=== PATIENT | female | born 1945 | race Native Hawaiian/Other Pacific Islander ===

== ENCOUNTER 2017-05-01 14:00 | Inpatient (IN) | payer MEDICAID ==
[2017-05-01] MEDS ORDERED: Sodium Chloride 0.9% 1,000 ML IV ONE ×2 (14:38→15:00)
[2017-05-01 14:49] LABS: VENOUS BLOOD GAS BASE EXCESS 3.9 mmol/L (0.0-2.0); VENOUS BLOOD GAS PCO2 42 mmHg (40-60); VENOUS BLOOD PH 7.44 (7.32-7.43)
[2017-05-01 14:55] LABS: BASO # 0.1 K/uL (0.0-0.2); BASO % 0.9 % (0.0-2.0); HEMATOCRIT 37.5 % (34.0-47.0); LYMPH # 1.7 K/uL (1.0-4.3); LYMPH % 13.8 % (20.0-40.0); MEAN CELL VOLUME 87.7 fL (81.0-99.0); MEAN CORPUSCULAR HEMOGLOBIN 28.9 pg (27.0-31.0); MONO # 1.4 K/uL (0.0-0.8); MONO % 10.7 % (0.0-10.0); RED CELL DISTRIBUTION WIDTH 13.7 % (11.5-14.5); WHITE BLOOD COUNT 12.6 K/uL (4.8-10.8)
[2017-05-01 15:02] LABS: RBC URINE 34 /hpf (0-3); URINE BACTERIA OCC (<OCC); URINE BILIRUBIN NEGATIVE (NEGATIVE); URINE BLOOD 2+ (NEGATIVE); URINE COLOR Yellow (YELLOW); URINE GLUCOSE (UA) 3+ mg/dL (Normal); URINE KETONE NEGATIVE (NEGATIVE); URINE LEUKOCYTE ESTERASE 2+ Leu/uL (Negative); URINE PROTEIN 2+ mg/dL (NEGATIVE); URINE UROBILINOGEN NORMAL mg/dL (0.2-1.0); WBC URINE 184 /hpf (0-5)
[2017-05-01 15:03] LABS: INR 1.2
[2017-05-01 15:12] LABS: CHLORIDE 98 mmol/L (98-107); POTASSIUM 4.1 mmol/L (3.6-5.2); SODIUM 137 mmol/L (132-148)
[2017-05-01 15:14] LABS: ALB/GLOB RATIO 1.3 (1.0-2.1); ALKALINE PHOSPHATASE 71 U/L (38-126); AST/SGOT 39 U/L (14-36); BILIRUBIN,TOTAL 0.9 mg/dL (0.2-1.3); CARBON DIOXIDE 23 mmol/L (22-30); GFR AFRICAN-AMERICAN > 60; TOTAL PROTEIN 7.7 g/dL (6.3-8.3)
[2017-05-01 15:15] LABS: ALT/SGPT 53 U/L (9-52); BLOOD UREA NITROGEN 15 mg/dL (7-17); CALCIUM 9.5 mg/dl (8.6-10.4); GLUCOSE,RANDOM 276 mg/dL (65-105); MAGNESIUM 1.5 mg/dL (1.6-2.3); PHOSPHOROUS 2.6 mg/dL (2.5-4.5)
--- NOTE | 2017-05-01 15:47 | C.PDOC ---
Time Seen by Provider: 05/01/17 14:30 Chief Complaint (Nursing): Abdominal Pain Past Medical History Vital Signs: Last Vital Signs Temp 102.3 F H 05/01/17 14:45 Pulse 91 H 05/01/17 15:12 Resp 26 H 05/01/17 15:12 BP 155/63 H 05/01/17 15:12 Pulse Ox 100 05/01/17 15:12 - Medical History PMH: Arthritis, Diabetes, HTN, Hypercholesterolemia Family History: States: Unknown Family Hx - Social History Hx Tobacco Use: No Hx Alcohol Use: No Hx Substance Use: No - Immunization History Hx Tetanus Toxoid Vaccination: No Hx Influenza Vaccination: No Hx Pneumococcal Vaccination: No ED Course And Treatment - Laboratory Results Result Diagrams: 05/01/17 14:50 05/01/17 14:50 O2 Sat by Pulse Oximetry: 100 Disposition - Disposition Forms: [employer] (Greek)
--- NOTE | 2017-05-01 15:51 | C.PDOC ---
History Of Present Illness 71 yr old female, accompanied by daughter presents to the ER with complaints of fever for 1 day, which is associated with diffuse epigastric abdominal pain. Patient denies travel, chest pain, SOB, nausea, vomiting, diarrhea, weakness or numbness. Time Seen by Provider: 05/01/17 14:30 Chief Complaint (Nursing): Abdominal Pain History Per: Patient, Family (Daughter) History/Exam Limitations: no limitations Onset/Duration Of Symptoms: Days (1) Current Symptoms Are (Timing): Still Present Location Of Pain/Discomfort: Diffuse, Epigastric Radiation Of Pain To:: None Associated Symptoms: Fever Exacerbating Factors: None Alleviating Factors: None Recent travel outside of the [place]: No Past Medical History Reviewed: Historical Data, Nursing Documentation, Vital Signs Vital Signs: Last Vital Signs Temp 99.1 F 05/01/17 16:15 Pulse 84 05/01/17 16:15 Resp 20 05/01/17 16:15 BP 126/59 L 05/01/17 16:15 Pulse Ox 100 05/01/17 17:05 - Medical History PMH: Arthritis, Diabetes, HTN, Hypercholesterolemia Family History: States: No Known Family Hx - Social History Hx Tobacco Use: No Hx Alcohol Use: No Hx Substance Use: No - Immunization History Hx Tetanus Toxoid Vaccination: No Hx Influenza Vaccination: No Hx Pneumococcal Vaccination: No Review Of Systems Except As Marked, All Systems Reviewed And Found Negative. Constitutional: Positive for: Fever (Subjective) Cardiovascular: Negative for: Chest Pain Respiratory: Negative for: Shortness of Breath Gastrointestinal: Positive for: Abdominal Pain (Diffuse epigastric pain). Negative for: Nausea, Vomiting, Diarrhea Neurological: Negative for: Weakness, Numbness Physical Exam - Physical Exam Appears: Non-toxic, No Acute Distress Skin: Warm, Dry, No Rash Head: Atraumatic, Normacephalic Eye(s): bilateral: Normal Inspection, PERRL, EOMI Ear(s): Bilateral: Normal Oral Mucosa: Moist Throat: Normal, No Erythema, No Exudate, No Drooling Neck: Normal, Normal ROM, Supple Chest: Symmetrical, No Tenderness Cardiovascular: Rhythm Regular, No Friction Rub, No Murmur Respiratory: Normal Breath Sounds, No Rales, No Rhonchi, No Wheezing Gastrointestinal/Abdominal: Normal Exam, Soft, No Tenderness, No Guarding, No Rebound Back: Normal Inspection, No CVA Tenderness Extremity: Normal ROM, No Swelling Neurological/Psych: Oriented x3, Normal Speech, Normal Motor Gait: Steady ED Course And Treatment - Laboratory Results Result Diagrams: 05/01/17 14:50 05/01/17 14:50 ECG: Interpreted By Me ECG Rhythm: Sinus Rhythm Interpretation Of ECG: T wave inversions, 3 and V2. Similar as compares to previous. Rate From EC (BPM) O2 Sat by Pulse Oximetry: 100 (RA) Pulse Ox Interpretation: Normal - Radiology CXR: Viewed By Me, Read By Radiologist CXR Interpretation: Yes: No Acute Disease. No: Infiltrates - CT Scan/US CT - Abd & Pelvis Other Rad Studies (CT/US): Read By Radiologist, Radiology Report Reviewed CT/US Interpretation: PROCEDURE: CT Abdomen and Pelvis without intravenous contrast. HISTORY: uti, abd pain, fever, r/o stone. COMPARISON: None. TECHNIQUE: Without contrast.. Contrast Dose: 0. Radiation dose: Total exam DLP = 528.12 mGy-cm. This CT exam was performed using one or more of the following dose reduction techniques: Automated exposure control, adjustment of the mA and/or kV according to patient size, and/or use of iterative reconstruction technique. FINDINGS: LOWER THORAX: Unremarkable. LIVER: Mild hepatomegaly. Diffusely diminished attenuation consistent with fatty infiltration. No mass. No biliary ductal dilatation. GALLBLADDER AND BILE DUCTS : Unremarkable. PANCREAS: Unremarkable. No gross lesion or ductal dilatation. SPLEEN: Unremarkable. ADRENALS: Unremarkable. No mass. KIDNEYS AND URETERS: Unremarkable. No hydronephrosis. No solid mass. No renal or ureteral calculus. VASCULATURE: Unremarkable. No aortic aneurysm. BOWEL: Unremarkable. No obstruction. No gross mural thickening. APPENDIX: Not identified. No secondary findings to suggest acute appendicitis. PERITONEUM: Unremarkable. No free fluid. No free air. LYMPH NODES: Unremarkable. No enlarged lymph nodes. BLADDER: Unremarkable. REPRODUCTIVE: Unremarkable uterus. BONES: No acute fracture. OTHER FINDINGS: None. IMPRESSION: Mild hepatomegaly with fatty infiltration of the liver. No evidence of urinary calculus or urinary tract obstruction. Otherwise unremarkable examination. Medical Decision Making Medical Decision Making: PLAN: * CT - Abd & Pelvis * CXR * EKG * VBG * CBC * CMP * Urinalysis * Tylenol PO * Sodium Chloride IV Patient was found to have an elevated lactic acid. NS IVF initiated and code sepsis was called. Blood and urine cultures sent. Patient was placed on Vancomycin and zosyn IV ordered. Call placed to Dr. Fofana (medicine oncall) for admission at 1630;. Case was discussed with Dr. Fofana who agrees to admit the patient to her service. Disposition - Disposition Disposition: HOSPITALIZED Disposition Time: 17:09 Condition: FAIR Forms: [employer] (Yoruba) - POA Present On Arrival: None - Clinical Impression Clinical Impression: UTI (urinary tract infection), Sepsis - PA / CONCRETE MIXER OPERATOR HELPER / Resident Statement MD/DO has reviewed & agrees with the documentation as recorded. - Scribe Statement The provider has reviewed the documentation as recorded by the Scribe Annabella Guevara All medical record entries made by the Elisabetibkalli were at my direction and personally dictated by me. I have reviewed the chart and agree that the record accurately reflects my personal performance of the history, physical exam, medical decision making, and the department course for this patient. I have also personally directed, reviewed, and agree with the discharge instructions and disposition.
[2017-05-01] MEDS ORDERED: Piperacill/Tazo 3.375gm in Dex 3.375 GM/50 ML BAG IVPB STA (15:58)
[2017-05-01] MEDS ORDERED: Vancomycin 1 gm/NS 200 ml 1 GM/200 ML BAG IVPB STA (15:58)
--- NOTE | 2017-05-01 15:58 | RAD ---
HISTORY: Sepsis Patient COMPARISON: 10/09/2015 FINDINGS: LUNGS: No active pulmonary disease. PLEURA: No significant pleural effusion identified, no pneumothorax apparent. CARDIOVASCULAR: Evaluation limited due to markedly oblique positioning. Normal heart size. No congestive change. OSSEOUS STRUCTURES: No significant abnormalities. VISUALIZED UPPER ABDOMEN: Normal. OTHER FINDINGS: None. IMPRESSION: No active disease.
[2017-05-01] MEDS ORDERED: Piperacillin/Tazobact 3.375 gm 100 ML IVPB ONE (16:09)
[2017-05-01] MEDS ORDERED: Vancomycin 1 GM 1 GM/250 ML BAG IVPB ONE (16:10)
[2017-05-01 16:41] LABS: VENOUS BLOOD GAS BASE EXCESS -1.4 mmol/L (0.0-2.0); VENOUS BLOOD GAS PCO2 36 mmHg (40-60); VENOUS BLOOD PH 7.41 (7.32-7.43)
--- NOTE | 2017-05-01 16:58 | CT ---
PROCEDURE: CT Abdomen and Pelvis without intravenous contrast HISTORY: uti, abd pain, fever, r/o stone COMPARISON: None. TECHNIQUE: Without contrast.. Contrast Dose: 0 Radiation dose: Total exam DLP = 528.12 mGy-cm. This CT exam was performed using one or more of the following dose reduction techniques: Automated exposure control, adjustment of the mA and/or kV according to patient size, and/or use of iterative reconstruction technique. FINDINGS: LOWER THORAX: Unremarkable. LIVER: Mild hepatomegaly. Diffusely diminished attenuation consistent with fatty infiltration. No mass. No biliary ductal dilatation. GALLBLADDER AND BILE DUCTS: Unremarkable. PANCREAS: Unremarkable. No gross lesion or ductal dilatation. SPLEEN: Unremarkable. ADRENALS: Unremarkable. No mass. KIDNEYS AND URETERS: Unremarkable. No hydronephrosis. No solid mass. No renal or ureteral calculus. VASCULATURE: Unremarkable. No aortic aneurysm. BOWEL: Unremarkable. No obstruction. No gross mural thickening. APPENDIX: Not identified. No secondary findings to suggest acute appendicitis. PERITONEUM: Unremarkable. No free fluid. No free air. LYMPH NODES: Unremarkable. No enlarged lymph nodes. BLADDER: Unremarkable. REPRODUCTIVE: Unremarkable uterus. BONES: No acute fracture. OTHER FINDINGS: None. IMPRESSION: Mild hepatomegaly with fatty infiltration of the liver. No evidence of urinary calculus or urinary tract obstruction. Otherwise unremarkable examination.
[2017-05-01] MEDS: Sodium Chloride 0.45% 1,000 ML IV SCH (22:12)
[2017-05-01] MEDS: (Novolin R) Insulin Human Regular 100 units/ml vial SC SCH (22:17)
[2017-05-02] MEDS: (Novolin R) Insulin Human Regular 100 units/ml vial SC SCH ×4 (08:29→21:31)
[2017-05-02] MEDS: Insulin Detemir 100 units/ml Vial (Levemir) SC SCH (10:05)
[2017-05-02] MEDS: Sodium Chloride 0.45% 1,000 ML IV SCH ×3 (12:20→22:34)
[2017-05-02] MEDS ORDERED: Magnesium Sulfate 1 gm in D5W 1 GM/100 ML BAG IVPB ONE (14:49)
--- NOTE | 2017-05-02 14:50 | CP.PCM.PN ---
Subjective - Date & Time of Evaluation Date of Evaluation: 05/02/17 Time of Evaluation: 14:00 - Subjective Subjective: H&P dictated #[id number] Objective - Vital Signs/Intake and Output Vital Signs (last 24 hours): Temp Pulse Resp BP Pulse Ox 99.0 F 81 20 139/72 96 05/02/17 08:09 05/02/17 08:09 05/02/17 08:09 05/02/17 08:09 05/02/17 08:09 Intake and Output: 05/02/17 05/02/17 06:59 18:59 Intake Total 450 Balance 450 - Medications Medications: Current Medications Acetaminophen (Tylenol 325mg Tab) 650 mg PO Q6 PRN PRN Reason: Fever >100.4 F Last Admin: 05/02/17 08:27 Dose: 650 mg Aspirin (Ecotrin) 81 mg PO DAILY [facility] Last Admin: 05/02/17 10:05 Dose: 81 mg Glimepiride (Amaryl) 4 mg PO DAILY [facility] Last Admin: 05/02/17 10:05 Dose: 4 mg Ceftriaxone Sodium 1 gm/ (Sodium Chloride) 100 mls @ 100 mls/hr IVPB DAILY [facility] Last Admin: 05/02/17 10:09 Dose: 100 mls/hr Sodium Chloride (Sodium Chloride 0.45%) 1,000 mls @ 75 mls/hr IV .[id number] [facility] Last Admin: 05/02/17 13:13 Dose: 75 mls/hr Magnesium Sulfate/Dextrose (Magnesium Sulfate 1 Gm/100 Ml D5w) 1 gm in 100 mls @ 200 mls/hr IVPB ONCE ONE Stop: 05/02/17 15:18 Insulin Detemir (Levemir) 14 unit SC DAILY [facility] Last Admin: 05/02/17 10:05 Dose: 14 unit Insulin Human Regular (Novolin R) 0 unit SC ACHS [facility] PRN Reason: Protocol Last Admin: 05/02/17 12:13 Dose: 4 unit Lisinopril (Zestril) 20 mg PO DAILY [facility] Last Admin: 05/02/17 10:05 Dose: 20 mg Metformin HCl (Glucophage) 500 mg PO BIDCC [facility] Last Admin: 05/02/17 08:29 Dose: 500 mg Pneumococcal Polyvalent Vaccine (Pneumovax 23 Vaccine) 0.5 ml IM .ONCE ONE Stop: 05/04/17 10:01 Rosuvastatin Calcium (Crestor) 2.5 mg PO HS [facility] Sitagliptin Phosphate (Januvia) 25 mg PO DAILY [facility] Last Admin: 05/02/17 10:05 Dose: 25 mg - Labs Labs: PT 13.3 SECONDS (9.7-12.2) H 05/01/17 14:50 INR 1.2 05/01/17 14:50 APTT 29 SECONDS (21-34) 05/01/17 14:50
[2017-05-02] MEDS ORDERED: Rosuvastatin Calcium 2.5 mg Tab PO SCH (22:00)
--- NOTE | 2017-05-02 23:30 | HP ---
CHIEF COMPLAINT: Generalized abdominal pain, more towards the left lower quadrant, fever for 2 days with urinary symptoms. HISTORY OF PRESENT ILLNESS: Ms. Sims is a 71-year-old female with past medical history of hypertension, diabetes mellitus, osteoarthritis, hyperlipidemia, who has been following up with Dr. Guillory as primary care physician, came into the ED, brought by the patient's daughter for symptoms of generalized abdominal pain and fever for 2 days and increased urinary frequency, urgency and burning urinary for the past one week. History obtained from the patient by the daughter who speaks her language. The patient claims that she has been having burning urination, increased urgency and frequency of urination for the past one week, has been having fever up to 102 for 2 days and started having generalized abdominal pain but more severe pain in the left side of the abdomen which made her come to the emergency room. She denied any headache, dizziness. Denied any chest pain, shortness of breath, or wheezing. Denied any nausea, vomiting, diarrhea or constipation. Denied any other neurologic symptoms. Denied any joint swelling or any other leg edema. PAST MEDICAL HISTORY: As described: Hypertension, diabetes mellitus, hyperlipidemia, osteoarthritis. PAST SURGICAL HISTORY: She underwent , underwent resection of the pelvic mass, which turned out to be benign about 2 years ago at [facility]. FAMILY HISTORY: Both parents from old age. SOCIAL HISTORY: Denies smoking, alcohol or drug abuse. PERSONAL HISTORY: She is , having 5 children, now lives with her daughter, retired. ALLERGIES: NO KNOWN DRUG ALLERGIES. MEDICATIONS AT HOME: Include Metformin 1000 mg p.o. b.i.d., Glimepiride 20 mg p.o. b.i.d., Levemir 14 units subcutaneous daily, Lasix 20 mg daily, hydrochlorothiazide 25 mg daily, aspirin 81 mg daily, Valsartan 20 mg daily, Lisinopril 20 mg daily, alogliptin 25 mg daily. REVIEW OF SYSTEMS: As described in history of present illness. All other systems reviewed and were found to be negative. PHYSICAL EXAMINATION: GENERAL: Elderly female lying in bed, in no acute distress. VITAL SIGNS: Blood pressure 133/62, pulse 85, respiration 20, temperature 99 degrees Fahrenheit, T-max is 102.2, O2 sat 96% on 2 L nasal cannula. HEENT: Pupils equal, round, and reacting to light and accommodation. Extraocular muscles intact. No icterus. No pallor. No oral thrush. No pharyngeal congestion. No nasal congestion. NECK: Supple. No JVD. No thyromegaly. CHEST: Moving equally bilaterally on respiration. LUNGS: Bilateral vesicular breath sounds. No wheezing, no rhonchi. CVS: S1 and S2 present and regular. ABDOMEN: Soft and nontender. Bowel sounds are present. No guarding. No rigidity. No rebound tenderness noted. PEDIATRIC UROLOGIST: Alert, awake, oriented x3. EXTREMITIES: No edema. Palpable peripheral pulses. LABORATORY DATA: Labs done from ED WBC 12.6, hemoglobin 12.4, hematocrit 37.5, platelets 147. PT 13.3, INR 1.2, PTT 29. Sodium 137, potassium 4.1, chloride 98, bicarbonate 23, BUN 15, creatinine 0.9, glucose 276, calcium 9.5, phosphorus 2.6, magnesium 1.5, total bilirubin 0.9, AST 39, ALT 53, CPK 149, total protein 7.7, albumin 4.4. UA specific gravity 1.017, pH 6.0, protein 2+, glucose 3+, blood 2+, nitrate positive, wbc 184, leukocyte esterase 2+, rbc 34. CT scan of the abdomen and pelvis, mild hepatomegaly with fatty infiltration of the liver. No evidence of urinary calculus or urinary tract obstruction. Otherwise unremarkable examination. Chest x-ray negative for any infiltrate. Blood cultures and urine cultures done from the ED. EKG consistent with normal sinus rhythm at 93 beats per minute, right bundle branch block. ASSESSMENT: Elderly female with history of hypertension, diabetes mellitus, hyperlipidemia, osteoarthritis, who has been following up with Dr. Guillory, came into the ED with 2 day history of fever, 1 week history of abdominal pain and urinary symptoms. In the ED, the patient is found to be having urinary tract infection and the patient is being admitted. 1. Urinary tract infection. 2. Hypertension. 3. Diabetes mellitus. 4. Abnormal LFTs. 5. Hyperlipidemia. PLAN: The patient is being admitted to the floor, received vancomycin and Zosyn in the ED, we will give Rocephin 1 gm IV daily, pending urine culture results. Continue with her home medications for her diabetes, hypertension and cholesterol.. We will repeat labs and lipid panel in a.m. We will supplement magnesium for hypomagnesemia. We will followup with urine culture, blood culture results. I will repeat UA. We will add further recommendations as her clinical course progresses. Tristan Fofana MD
[2017-05-03] MEDS: Sodium Chloride 0.45% 1,000 ML IV SCH (04:26)
[2017-05-03 07:06] LABS: BASO % 0.6 % (0.0-2.0); EOS # 0.2 K/uL (0.0-0.7); EOS % 2.8 % (0.0-4.0); HEMATOCRIT 32.5 % (34.0-47.0); LYMPH # 1.6 K/uL (1.0-4.3); LYMPH % 20.7 % (20.0-40.0); MEAN CELL VOLUME 87.3 fL (81.0-99.0); MEAN CORPUSCULAR HEMOGLOBIN 29.3 pg (27.0-31.0); MEAN CORPUSCULAR HGB CONC 33.6 g/dL (33.0-37.0); MEAN PLATELET VOLUME 10.3 fL (7.2-11.7); MONO # 0.9 K/uL (0.0-0.8); MONO % 12.1 % (0.0-10.0); RED CELL DISTRIBUTION WIDTH 13.9 % (11.5-14.5); WHITE BLOOD COUNT 7.5 K/uL (4.8-10.8)
[2017-05-03 07:21] LABS: CHLORIDE 109 mmol/L (98-107); POTASSIUM 3.7 mmol/L (3.6-5.2); SODIUM 141 mmol/L (132-148)
[2017-05-03 07:23] LABS: ALB/GLOB RATIO 1.1 (1.0-2.1); ALKALINE PHOSPHATASE 73 U/L (38-126); AST/SGOT 56 U/L (14-36); BILIRUBIN,TOTAL 0.6 mg/dL (0.2-1.3); BLOOD UREA NITROGEN 9 mg/dL (7-17); CARBON DIOXIDE 22 mmol/L (22-30); CHOLESTEROL 160 mg/dL (0-199); GFR AFRICAN-AMERICAN > 60; GLUCOSE,RANDOM 159 mg/dL (65-105); TOTAL PROTEIN 6.7 g/dL (6.3-8.3)
[2017-05-03 07:24] LABS: ALT/SGPT 62 U/L (9-52); CALCIUM 8.4 mg/dl (8.6-10.4)
[2017-05-03 07:53] LABS: THYROID STIMULATING HORMONE 0.69 mIU/L (0.46-4.68)
[2017-05-03 09:35] VITALS: BP 136/65; PULSE 74; RESP 20; TEMP 98.4; O2SAT 96
[2017-05-03] MEDS: Insulin Detemir 100 units/ml Vial (Levemir) SC SCH (09:57)
[2017-05-03] MEDS: (Novolin R) Insulin Human Regular 100 units/ml vial SC SCH ×2 (09:58→13:31)
--- NOTE | 2017-05-03 13:16 | CP.PCM.PN ---
Subjective - Date & Time of Evaluation Date of Evaluation: 05/03/17 Time of Evaluation: 13:10 - Subjective Subjective: Discharge summary dictated #[id number] Objective - Vital Signs/Intake and Output Vital Signs (last 24 hours): Temp Pulse Resp BP Pulse Ox 98.4 F 74 20 136/65 96 05/03/17 08:00 05/03/17 08:00 05/03/17 08:00 05/03/17 08:00 05/03/17 08:00 Intake and Output: 05/03/17 05/03/17 06:59 18:59 Intake Total 1100 Balance 1100 - Medications Medications: Current Medications Acetaminophen (Tylenol 325mg Tab) 650 mg PO Q6 PRN PRN Reason: Fever >100.4 F Last Admin: 05/02/17 08:27 Dose: 650 mg Aspirin (Ecotrin) 81 mg PO DAILY [facility] Last Admin: 05/03/17 09:59 Dose: 81 mg Glimepiride (Amaryl) 4 mg PO DAILY [facility] Last Admin: 05/03/17 09:59 Dose: 4 mg Heparin Sodium (Porcine) (Heparin) 5,000 units SC Q12 [facility] Last Admin: 05/03/17 09:58 Dose: 5,000 units Ceftriaxone Sodium 1 gm/ (Sodium Chloride) 100 mls @ 100 mls/hr IVPB DAILY [facility] Last Admin: 05/03/17 09:58 Dose: 100 mls/hr Sodium Chloride (Sodium Chloride 0.45%) 1,000 mls @ 75 mls/hr IV .[id number] [facility] Last Admin: 05/03/17 04:26 Dose: 75 mls/hr Insulin Detemir (Levemir) 14 unit SC DAILY [facility] Last Admin: 05/03/17 09:57 Dose: 14 unit Insulin Human Regular (Novolin R) 0 unit SC ACHS [facility] PRN Reason: Protocol Last Admin: 05/03/17 09:58 Dose: 1 unit Lisinopril (Zestril) 20 mg PO DAILY [facility] Last Admin: 05/03/17 09:59 Dose: 20 mg Metformin HCl (Glucophage) 1,000 mg PO BID [facility] Last Admin: 05/03/17 09:59 Dose: 1,000 mg Pneumococcal Polyvalent Vaccine (Pneumovax 23 Vaccine) 0.5 ml IM .ONCE ONE Stop: 05/04/17 10:01 Rosuvastatin Calcium (Crestor) 2.5 mg PO HS [facility] Last Admin: 05/02/17 21:30 Dose: 2.5 mg Sitagliptin Phosphate (Januvia) 25 mg PO DAILY [facility] Last Admin: 05/03/17 09:59 Dose: 25 mg - Labs Labs: 05/03/17 06:52 05/03/17 06:52 PT 13.3 SECONDS (9.7-12.2) H 05/01/17 14:50 INR 1.2 05/01/17 14:50 APTT 29 SECONDS (21-34) 05/01/17 14:50
--- NOTE | 2017-05-04 05:54 | DS ---
DISCHARGE DIAGNOSES: Escherichia coli urinary tract infection, hypertension, uncontrolled diabetes mellitus, hyperlipidemia, and abnormal liver function tests. HISTORY OF PRESENT ILLNESS: Ms. Sims is a 71-year-old female with past medical history of hypertension, diabetes mellitus, osteoarthritis, and hyperlipidemia who has been following up with Dr. Guillory as primary care physician, came in to the ED with complaints of generalized abdominal pain, fever for 2 days, and urinary symptoms. In the ED, the patient was found to be having UTI and the patient has been admitted for further management. Today, the patient is feeling much better. Denies any headache or dizziness. Denies any chest pain, shortness of breath, or wheezing. Denies any nausea, vomiting, abdominal pain, diarrhea, or constipation. Denies any urinary complaints. Denies any leg pain or leg cramps. Denies any other neurologic symptoms. All other systems reviewed and were found to be negative. PHYSICAL EXAMINATION: GENERAL: Elderly female sitting in bed, in no acute distress. VITAL SIGNS: Blood pressure 136/65, pulse 74, respirations 20, temperature 98.4 degree Fahrenheit, and O2 saturation 96% on 2 L nasal cannula. HEENT: Pupils equal, round, and reacting to light and accommodation. Extraocular muscles intact. No icterus. No pallor. No oral thrush. No pharyngeal congestion. NECK: Supple. No JVD. LUNGS: Bilateral vesicular breath sounds. No wheezing. No rhonchi. CARDIOVASCULAR: S1 and S2 present and regular. ABDOMEN: Soft and nontender. Bowel sounds present. No guarding. No rigidity. No rebound tenderness noted. CENTRAL NERVOUS SYSTEM: Alert, awake, and oriented x3. No focal deficits noted. EXTREMITIES: No edema. Palpable peripheral pulses. LABORATORY DATA: Labs done from this morning; WBC 7.5, hemoglobin 10.9, hematocrit 32.5, and platelets 127. Sodium 141, potassium 3.7, chloride 109, bicarbonate 14, BUN 9, creatinine 0.7, glucose 189, hemoglobin A1c 8.4, calcium 0.6, AST 56, ALT 62, alkaline phosphatase 73, total protein 6.7, and albumin 3.5. Triglycerides 150, cholesterol 160, LDL 92, HDL 43, and TSH 0.69. Urine culture positive for E. coli, sensitive to all the antibiotics, ampicillin, aztreonam, Rocephin, Bactrim, ertapenem, cefazolin, ciprofloxacin, cefepime, nitrofurantoin, gentamicin, imipenem, and meropenem. Blood cultures x2 negative so far. CT scan of the abdomen and pelvis negative for any acute abnormality. Chest x-ray negative. HOSPITAL COURSE: The patient was admitted to the hospital for UTI, possible sepsis. The patient received vancomycin and Zosyn in the ED. Blood cultures and urine cultures were done. Urine cultures positive for E. coli. E. coli is sensitive to Rocephin. The patient is otherwise hemodynamically stable and her symptoms improved. The patient is being discharged and advised the patient that her sugars are uncontrolled and she needs to go back to primary care physician for adjustment of her insulin regimen after acute infection is treated. The patient understands the need for followup with PMD and endocrinology. Also advised the patient to follow up with cardiology for further cardiac workup as outpatient for abnormal EKG. She needs to have echocardiogram as outpatient. CONDITION UPON DISCHARGE: The patient is alert, awake, oriented x3, and hemodynamically stable. DISCHARGE INSTRUCTIONS: Follow up with PMD, follow up with endocrinology, and follow up with cardiology as outpatient. DISCHARGE MEDICATIONS: Alogliptin 25 mg daily, aspirin 81 mg daily, ciprofloxacin 500 mg p.o. b.i.d., Lasix 20 mg daily, glimepiride 20 mg p.o. b.i.d., hydrochlorothiazide 25 mg daily, Levemir 14 units daily, lisinopril 20 mg daily, metformin 1000 mg p.o. b.i.d., K-Dur 20 mEq p.o. daily, and pravastatin 20 mg p.o. daily. DISCHARGE DIET: Heart healthy, 1800-calorie ADA low-salt diet. ACTIVITY: As tolerated. Please also refer to discharge medication reconciliation at the time of discharge. Tristan Fofana MD
[2017-05-04] MEDS ORDERED: Pneumococcal 23-Valent Vaccine IM ONE (10:00)
--- NOTE | 2017-05-04 17:22 | CARD ---
APPROVED REPORT EKG Measurement Heart [id number] <Conclusion> Normal sinus rhythm Right bundle branch block Abnormal ECG
== END 2017-05-03 15:15 | disposition home or self-care (01) | DRG 320 ==
LOC: C.ER 14:00 → C.9E 17:13 → C.5S 18:15
PROVIDERS: ADMIT Internal Medicine; ATTEND Internal Medicine
DX: N39.0 Urinary tract infection, site not specified (principal); E11.65 Type 2 diabetes mellitus with hyperglycemia; I10 Essential (primary) hypertension; B96.20 Unspecified Escherichia coli [E. coli] as the cause of diseases classified elsewhere; E78.00 Pure hypercholesterolemia, unspecified; E78.5 Hyperlipidemia, unspecified; Z79.4 Long term (current) use of insulin; Z79.82 Long term (current) use of aspirin; Z79.899 Other long term (current) drug therapy

== ENCOUNTER 2017-12-04 13:56 | Emergency (ER) | payer MEDICAID ==
--- NOTE | 2017-12-04 14:19 | C.PDOC ---
Time Seen by Provider: 12/04/17 14:17 Chief Complaint (Nursing): Back Pain Past Medical History - Medical History PMH: Arthritis, Diabetes, HTN, Hypercholesterolemia Denies: Chronic Kidney Disease Family History: States: Unknown Family Hx - Social History Hx Tobacco Use: No Hx Alcohol Use: No Hx Substance Use: No - Immunization History Hx Tetanus Toxoid Vaccination: Yes Hx Influenza Vaccination: Yes Hx Pneumococcal Vaccination: Yes Disposition - Disposition
--- NOTE | 2017-12-04 14:22 | C.PDOC ---
History Of Present Illness 72 year old female presents to the emergency department with complaints of gout exacerbation persisting for the last three weeks. Patient reports her initial onset began on her right ankle and right first toe, now it is also present on her left first toe and left knee. Patient reports she has been taking Indocin daily for the past three weeks with no relief. Patient initially saw her PMD and was supposed to follow up today but decided to present here instead. Patient states her last dose of Indocin was this morning, and denies trauma. co gout exacerbation going on 3 weeks initial onset right ankle and right first toe now on left first toe and left knee, no relief with indocin taking daily for past 3 wk, saw her pmd for same supposed to follow up today and came here instead. no trauma etc last took indocin this morning ex: both feet no swelling tenderness ankle and right firt toe jontm skin normal etc Time Seen by Provider: 12/04/17 14:17 Chief Complaint (Nursing): Back Pain History Per: Patient History/Exam Limitations: no limitations Onset/Duration Of Symptoms: Days (3 weeks) Current Symptoms Are (Timing): Still Present Quality Of Discomfort: Other (gout) Past Medical History Reviewed: Historical Data, Nursing Documentation, Vital Signs Vital Signs: Last Vital Signs Temp 98 F 12/04/17 14:53 Pulse 78 12/04/17 14:53 Resp 18 12/04/17 14:53 BP 136/76 12/04/17 14:53 Pulse Ox 98 12/04/17 14:53 - Medical History PMH: Arthritis, Diabetes, HTN, Hypercholesterolemia Denies: Chronic Kidney Disease Surgical History: No Surg Hx Family History: States: No Known Family Hx - Social History Hx Tobacco Use: No Hx Alcohol Use: No Hx Substance Use: No - Immunization History Hx Tetanus Toxoid Vaccination: Yes Hx Influenza Vaccination: Yes Hx Pneumococcal Vaccination: Yes Review Of Systems Except As Marked, All Systems Reviewed And Found Negative. Musculoskeletal: Positive for: Leg Pain, Foot Pain Physical Exam - Physical Exam Appears: Non-toxic, No Acute Distress Skin: Normal Color Cardiovascular: Rhythm Regular Respiratory: Other (NARD) Extremity: Tenderness (to ankle and right first toe joint), No Swelling (no swelling noted on both feet) Neurological/Psych: Oriented x3, Normal Speech, Normal Cognition ED Course And Treatment Progress Note: Plan: Colocrys 1.2mg PO. Tylenol 650mg PO. Prednisone 60mg PO Disposition Counseled Patient/Family Regarding: Diagnosis, Need For Followup, Rx Given - Disposition Referrals: YOUR,PMD [Other] Disposition: HOME/ ROUTINE Disposition Time: 15:12 Condition: IMPROVED Prescriptions: Colchicine [Mitigare] 0.6 mg PO ONCE #1 capsule predniSONE [Prednisone] 60 mg PO DAILY #12 tab Instructions: Gout (DC) Forms: [employer] (Khmer) - Clinical Impression Clinical Impression: Gout - Scribe Statement The provider has reviewed the documentation as recorded by the Scribe (Jamel Shannon) Provider Attestation: All medical record entries made by the Scribe were at my direction and personally dictated by me. I have reviewed the chart and agree that the record accurately reflects my personal performance of the history, physical exam, medical decision making, and the department course for this patient. I have also personally directed, reviewed, and agree with the discharge instructions and disposition.
[2017-12-04 14:53] VITALS: BP 136/76; PULSE 78; RESP 18; TEMP 98; O2SAT 98
== END 2017-12-04 15:29 | disposition home or self-care (01) ==
LOC: C.ER 13:56
DX: M10.9 Gout, unspecified (principal)

== ENCOUNTER 2017-12-13 17:17 | Emergency (ER) | payer MEDICAID ==
[2017-12-13 17:34] VITALS: BP 123/63; PULSE 88; TEMP 97.9; O2SAT 98
--- NOTE | 2017-12-13 18:00 | C.PDOC ---
History Of Present Illness The patient reports 2 days history of pain to the bilateral feet. Patient states that she has history of gout and was seen in the ED last week for similar symptoms. Patient reports that the symptoms went away but returned 2 days ago. Denies trauma, fever, rash, numbness, weakness. Time Seen by Provider: 12/13/17 17:46 Chief Complaint (Nursing): Lower Extremity Problem/Injury History Per: Patient History/Exam Limitations: no limitations Onset/Duration Of Symptoms: Days (2) Current Symptoms Are (Timing): Still Present Additional History Per: Patient Past Medical History Reviewed: Historical Data, Nursing Documentation, Vital Signs Vital Signs: Last Vital Signs Temp 97.9 F 12/13/17 17:32 Pulse 88 12/13/17 17:32 Resp 20 12/13/17 19:40 BP 123/63 12/13/17 17:32 Pulse Ox 98 12/13/17 19:30 - Medical History PMH: Arthritis, Diabetes, HTN, Hypercholesterolemia Denies: Chronic Kidney Disease Surgical History: No Surg Hx Family History: States: Unknown Family Hx - Social History Hx Tobacco Use: No Hx Alcohol Use: No Hx Substance Use: No - Immunization History Hx Tetanus Toxoid Vaccination: Yes Hx Influenza Vaccination: Yes Hx Pneumococcal Vaccination: Yes Review Of Systems Constitutional: Negative for: Fever, Chills Musculoskeletal: Positive for: Foot Pain (bilateral ) Neurological: Negative for: Weakness, Numbness Physical Exam - Physical Exam Appears: Non-toxic, No Acute Distress Skin: Normal Color, Warm, Dry, No Pale, No Rash Head: Atraumatic, Normacephalic Eye(s): bilateral: Normal Inspection Oral Mucosa: Moist Neck: Normal ROM, Supple Chest: Symmetrical, No Deformity, No Tenderness Cardiovascular: Rhythm Regular, No Murmur Respiratory: Normal Breath Sounds, No Rales, No Rhonchi, No Wheezing Gastrointestinal/Abdominal: Soft, No Tenderness Extremity: Normal ROM, Capillary Refill (less than 2 seconds ), No Deformity, Other ((+) tenderness and mild swelling to the bilateral feet and great toes) Neurological/Psych: Oriented x3, Normal Speech, Normal Cognition, Normal Motor, Normal Sensation Gait: Steady ED Course And Treatment O2 Sat by Pulse Oximetry: 98 (on RA) Pulse Ox Interpretation: Normal Medical Decision Making Medical Decision Making: Progress: Colocrys PO, Toradol IM, Prednisone PO administered. On re-exam, the patient reports improvement of symptoms. Lungs are CTA, heart is RRR, abdomen is soft, non-tender and tolerating PO well. Ambulatory in the ED with steady gait. Follow up with the medical doctor within 1-2 days. Return if worsened Disposition - Disposition Referrals: Radha Guillory MD [Medical Doctor] - Disposition: HOME/ ROUTINE Disposition Time: 19:18 Condition: GOOD Additional Instructions: Follow up with the medical doctor within 1-2 days. return if worsened. Prescriptions: Colchicine 0.6 mg PO DAILY #7 tablet Ibuprofen [Motrin] 1 tab PO TID PRN #30 tab PRN Reason: Pain predniSONE [Prednisone] 20 mg PO BID #10 tab Instructions: Gout (DC) Forms: [employer] (Lao) - Clinical Impression Clinical Impression: Gout - PA / [employer] / Resident Statement MD/DO has reviewed & agrees with the documentation as recorded. - Scribe Statement The provider has reviewed the documentation as recorded by the Scribe (Rosa Espino) All medical record entries made by the Scribe were at my direction and personally dictated by me. I have reviewed the chart and agree that the record accurately reflects my personal performance of the history, physical exam, medical decision making, and the department course for this patient. I have also personally directed, reviewed, and agree with the discharge instructions and disposition.
[2017-12-13 19:41] VITALS: RESP 20
== END 2017-12-13 19:40 | disposition home or self-care (01) ==
LOC: C.ER 17:17
DX: M10.9 Gout, unspecified (principal); E11.9 Type 2 diabetes mellitus without complications; E78.00 Pure hypercholesterolemia, unspecified; I10 Essential (primary) hypertension
CPT/HCPCS: 96372; 99284; J1885

== ENCOUNTER 2018-09-02 19:14 | Emergency (ER) | payer MEDICAID ==
[2018-09-02 19:22] VITALS: RESP 20
--- NOTE | 2018-09-02 19:50 | C.PDOC ---
History Of Present Illness Patient presents to the ER with a complaint of fever, increased urination, and poor appetite over the last 2 days. She states she has felt hot over the last 2 days but has not actually taken her temperature. Patient is able to tolerate PO. Denies nausea or vomiting. Time Seen by Provider: 09/02/18 19:41 Chief Complaint (Nursing): Fever History Per: Patient History/Exam Limitations: no limitations Onset/Duration Of Symptoms: Days (2) Current Symptoms Are (Timing): Still Present Severity: Moderate Pain Scale Rating Of: 4 Recent travel outside of the [place]: No Past Medical History Reviewed: Historical Data, Nursing Documentation, Vital Signs Vital Signs: Last Vital Signs Temp 98.4 F 09/02/18 19:18 Pulse 20 L 09/02/18 19:18 Resp 20 09/02/18 19:18 BP 134/80 09/02/18 19:18 Pulse Ox 95 09/02/18 19:18 - Medical History PMH: Arthritis, Diabetes, HTN, Hypercholesterolemia Denies: Chronic Kidney Disease Family History: States: No Known Family Hx - Social History Hx Tobacco Use: No Hx Alcohol Use: No Hx Substance Use: No - Immunization History Hx Tetanus Toxoid Vaccination: No Hx Influenza Vaccination: Yes Hx Pneumococcal Vaccination: No Review Of Systems Constitutional: Positive for: Fever (Subjective), Other (Poor appetite) Cardiovascular: Negative for: Chest Pain, Palpitations Respiratory: Negative for: Cough, Shortness of Breath Gastrointestinal: Negative for: Nausea, Vomiting Genitourinary: Positive for: Other (Increased urination) Neurological: Negative for: Weakness, Numbness Physical Exam - Physical Exam Appears: Non-toxic Skin: Warm, Dry Head: Normacephalic Oral Mucosa: Moist Neck: Trachea Midline, Supple Chest: Symmetrical, No Tenderness Cardiovascular: Rhythm Regular Respiratory: No Rales, No Rhonchi, No Wheezing Gastrointestinal/Abdominal: Soft, No Tenderness Back: No CVA Tenderness Neurological/Psych: Oriented x3 ED Course And Treatment - Laboratory Results Result Diagrams: 09/02/18 20:01 09/02/18 20:01 ECG: Interpreted By Me, Viewed By Me ECG Rhythm: Sinus Rhythm (89), R BBB, Nonspecific Changes O2 Sat by Pulse Oximetry: 95 (Room air) Pulse Ox Interpretation: Normal Progress Note: EKG, blood work, urinalysis, and flu swab ordered. IV fluids administered. Reevaluation Time: 23:10 Reassessment Condition: Improved Medical Decision Making Medical Decision Making: Upon provider reevaluation patient is feeling better, is medically stable, and requires no further treatment in the ED at this time. Patient will be discharged home with Rx for macrobid. Counseling was provided and all questions were answered regarding diagnosis and need for follow up with dr weinstein. There is agreement to discharge plan. Return if symptoms persist or worsen. Disposition Counseled Patient/Family Regarding: Studies Performed, Diagnosis, Need For Followup, Rx Given - Disposition Referrals: Radha Weinstein MD [Medical Doctor] - Disposition: HOME/ ROUTINE Disposition Time: 19:50 Condition: FAIR Additional Instructions: Plkease return if symptoms recur Prescriptions: Nitrofurantoin Macrocrystals [Macrobid] 1 cap PO BID #14 cap Instructions: Urinary Tract Infection, Adult (DC) Forms: [employer] (Ukrainian) - Clinical Impression Clinical Impression: UTI (urinary tract infection) - Scribe Statement The provider has reviewed the documentation as recorded by the Scribe Hany James All medical record entries made by the Scribe were at my direction and personally dictated by me. I have reviewed the chart and agree that the record accurately reflects my personal performance of the history, physical exam, medical decision making, and the department course for this patient. I have also personally directed, reviewed, and agree with the discharge instructions and disposition.
[2018-09-02] MEDS ORDERED: Sodium Chloride 0.9% 1,000 ML IV ONE (19:51)
[2018-09-02 20:08] LABS: BASO # 0.1 K/uL (0.0-0.2); BASO % 0.6 % (0.0-2.0); EOS % 0.3 % (0.0-4.0); HEMOGLOBIN 13.9 g/dL (11.0-16.0); LYMPH # 1.6 K/uL (1.0-4.3); LYMPH % 16.7 % (20.0-40.0); MEAN CELL VOLUME 86.1 fL (81.0-99.0); MEAN CORPUSCULAR HEMOGLOBIN 28.6 pg (27.0-31.0); MEAN CORPUSCULAR HGB CONC 33.2 g/dL (33.0-37.0); MEAN PLATELET VOLUME 10.3 fL (7.2-11.7); MONO # 1.1 K/uL (0.0-0.8); MONO % 11.7 % (0.0-10.0); NEUT # 6.9 K/uL (1.8-7.0); NEUT % 70.7 % (50.0-75.0); NRBC % 0.1 % (0.0-2.0); RBC 4.87 Mil/uL (3.80-5.20); RED CELL DISTRIBUTION WIDTH 14.4 % (11.5-14.5); WHITE BLOOD COUNT 9.7 K/uL (4.8-10.8)
[2018-09-02 20:16] LABS: INR 1.1
[2018-09-02 20:21] LABS: VENOUS BLOOD GAS BASE EXCESS -1.9 mmol/L (0.0-2.0); VENOUS BLOOD GAS PCO2 35 mmHg (40-60); VENOUS BLOOD GAS PO2 44 mm/Hg (30-55); VENOUS BLOOD PH 7.41 (7.32-7.43)
[2018-09-02 20:32] LABS: ALB/GLOB RATIO 1.4 (1.0-2.1); ALBUMIN 4.8 g/dL (3.5-5.0); CALCIUM 9.8 mg/dl (8.6-10.4)
[2018-09-02 21:32] LABS: SQUAMOUS EPITHIAL < 1 /hpf (0-5); URINE BACTERIA FEW (<OCC); URINE BILIRUBIN NEGATIVE (NEGATIVE); URINE BLOOD 1+ (NEGATIVE); URINE CLARITY Clear (Clear); URINE COLOR Yellow (YELLOW); URINE GLUCOSE (UA) NORMAL (Normal); URINE LEUKOCYTE ESTERASE NEG Leu/uL (Negative); URINE PROTEIN 2+ mg/dL (NEGATIVE); URINE UROBILINOGEN NORMAL mg/dL (0.2-1.0)
[2018-09-02 23:23] VITALS: BP 134/70; PULSE 78; TEMP 98.8; O2SAT 98
== END 2018-09-02 23:24 | disposition home or self-care (01) ==
LOC: C.ER 19:14
DX: N39.0 Urinary tract infection, site not specified (principal); I10 Essential (primary) hypertension; E78.00 Pure hypercholesterolemia, unspecified; E11.9 Type 2 diabetes mellitus without complications
CPT/HCPCS: 80053; 81001; 82009; 82803; 82948; 83690; 85025; 85610; 85730; 87040; 87086; 87181; 87804; 93005; 96374; 99285; J0696; J7030

== ENCOUNTER 2018-09-05 14:27 | Emergency (ER) | payer MEDICAID ==
[2018-09-05 14:53] VITALS: BMI 29.3
[2018-09-05] MEDS ORDERED: Iohexol 240 (50 ml) PO STA (16:31)
[2018-09-05 16:53] LABS: BASO # 0.1 K/uL (0.0-0.2); BASO % 1.4 % (0.0-2.0); EOS # 0.3 K/uL (0.0-0.7); EOS % 4.3 % (0.0-4.0); LYMPH # 2.4 K/uL (1.0-4.3); LYMPH % 37.7 % (20.0-40.0); MEAN CELL VOLUME 87.1 fL (81.0-99.0); MEAN CORPUSCULAR HEMOGLOBIN 28.6 pg (27.0-31.0); MEAN CORPUSCULAR HGB CONC 32.8 g/dL (33.0-37.0); MEAN PLATELET VOLUME 9.3 fL (7.2-11.7); MONO # 0.7 K/uL (0.0-0.8); MONO % 10.6 % (0.0-10.0); NEUT # 2.9 K/uL (1.8-7.0); RBC 4.18 Mil/uL (3.80-5.20); RED CELL DISTRIBUTION WIDTH 14.2 % (11.5-14.5); WHITE BLOOD COUNT 6.3 K/uL (4.8-10.8)
[2018-09-05 16:59] LABS: SQUAMOUS EPITHIAL < 1 /hpf (0-5); URINE BACTERIA OCC (<OCC); URINE BILIRUBIN NEGATIVE (NEGATIVE); URINE BLOOD NEGATIVE (NEGATIVE); URINE CLARITY Clear (Clear); URINE COLOR Yellow (YELLOW); URINE GLUCOSE (UA) NORMAL (Normal); URINE LEUKOCYTE ESTERASE TRACE Leu/uL (Negative); URINE PROTEIN 1+ mg/dL (NEGATIVE); URINE UROBILINOGEN NORMAL mg/dL (0.2-1.0)
[2018-09-05 17:00] LABS: HEMOGLOBIN 11.9 g/dL (11.0-16.0)
[2018-09-05] MEDS ORDERED: Iohexol 240 (50 ml) ONE (17:05)
[2018-09-05 17:17] LABS: ALB/GLOB RATIO 1.4 (1.0-2.1); ALBUMIN 4.3 g/dL (3.5-5.0); ALT/SGPT 61 U/L (9-52); AST/SGOT 102 U/L (14-36); BLOOD UREA NITROGEN 22 mg/dL (7-17); CALCIUM 9.8 mg/dl (8.6-10.4); GFR NON-AFRICAN AMERICAN > 60; LIPASE 342 U/L (23-300)
[2018-09-05] MEDS ORDERED: Sodium Chloride 0.9% 1,000 ML IV SCH (17:30)
[2018-09-05] MEDS ORDERED: Sodium Chloride 0.9% 1,000 ML ONE (17:30)
[2018-09-05] MEDS ORDERED: Iohexol 300 100 ML IJ ONE (17:44)
--- NOTE | 2018-09-05 18:15 | C.PDOC ---
History Of Present Illness 72 year old female with a history of diabetes presents to the emergency department with complaints of intermittent burning sensation to her left-sided abdomen which has become constant since last night. Patient was evaluated in the ED on 09-02-18 for UTI and has been taking antibiotics since then. Patient denies fever, chills, nausea, vomiting, diarrhea, and rash. Patient states that food does not improve or worsen the symptoms. Time Seen by Provider: 09/05/18 15:53 Chief Complaint (Nursing): Abdominal Pain History Per: Patient History/Exam Limitations: no limitations Onset/Duration Of Symptoms: Days (3) Current Symptoms Are (Timing): Still Present Location Of Pain/Discomfort: LUQ, LLQ Quality Of Discomfort: Burning Associated Symptoms: denies: Fever, Chills, Nausea, Vomiting, Diarrhea, Other (rash) Past Medical History Reviewed: Historical Data, Nursing Documentation, Vital Signs Vital Signs: Last Vital Signs Temp 98.0 F 09/05/18 14:53 Pulse 82 09/05/18 14:53 Resp 20 09/05/18 14:53 BP 150/83 09/05/18 14:53 Pulse Ox 98 09/05/18 14:53 - Medical History PMH: Arthritis, Diabetes, HTN, Hypercholesterolemia Denies: Chronic Kidney Disease Surgical History: No Surg Hx Family History: States: No Known Family Hx - Social History Hx Tobacco Use: No Hx Alcohol Use: No Hx Substance Use: No - Immunization History Hx Tetanus Toxoid Vaccination: No Hx Influenza Vaccination: Yes Hx Pneumococcal Vaccination: Yes Review Of Systems Constitutional: Negative for: Fever, Chills ENT: Negative for: Ear Pain, Throat Pain Cardiovascular: Negative for: Chest Pain Respiratory: Negative for: Cough Gastrointestinal: Positive for: Abdominal Pain. Negative for: Nausea, Vomiting, Diarrhea Skin: Negative for: Rash Physical Exam - Physical Exam Appears: Non-toxic, No Acute Distress Skin: Normal Color, Warm, Dry, No Rash Head: Atraumatic, Normacephalic Eye(s): bilateral: Normal Inspection, PERRL, EOMI Oral Mucosa: Moist Neck: Normal, Supple Chest: Symmetrical, No Tenderness Cardiovascular: Rhythm Regular, No Murmur Respiratory: Normal Breath Sounds, No Rales, No Rhonchi, No Wheezing Gastrointestinal/Abdominal: Soft, Tenderness (mild LLQ tenderness), No Guarding, No Rebound Neurological/Psych: Oriented x3, Normal Speech, Normal Cognition ED Course And Treatment - Laboratory Results Result Diagrams: 09/05/18 16:47 09/05/18 16:47 Lab Results: Troponin I < 0.0120 ng/mL (0.00-0.120) 09/05/18 16:47 Total Bilirubin 0.6 mg/dL (0.2-1.3) 09/05/18 16:47 AST 102 U/L (14-36) H D 09/05/18 16:47 ALT 61 U/L (9-52) H 09/05/18 16:47 Alkaline Phosphatase 89 U/L (38-126) 09/05/18 16:47 Total Protein 7.4 g/dL (6.3-8.3) 09/05/18 16:47 Albumin 4.3 g/dL (3.5-5.0) 09/05/18 16:47 Globulin 3.1 gm/dL (2.2-3.9) 09/05/18 16:47 Albumin/Globulin Ratio 1.4 (1.0-2.1) 09/05/18 16:47 Lipase 342 U/L (23-300) H 09/05/18 16:47 Urine Color Yellow (YELLOW) 09/05/18 16:41 Urine Clarity Clear (Clear) 09/05/18 16:41 Urine pH 5.0 (5.0-8.0) 09/05/18 16:41 Ur Specific [place] 1.015 (1.003-1.030) 09/05/18 16:41 Urine Protein 1+ mg/dL (NEGATIVE) H 09/05/18 16:41 Urine Glucose (UA) Normal mg/dL (Normal) 09/05/18 16:41 Urine Ketones Negative mg/dL (NEGATIVE) 09/05/18 16:41 Urine Blood Negative (NEGATIVE) 09/05/18 16:41 Urine Nitrate Negative (NEGATIVE) 09/05/18 16:41 Urine Bilirubin Negative (NEGATIVE) 09/05/18 16:41 Urine Urobilinogen Normal mg/dL (0.2-1.0) 09/05/18 16:41 Ur Leukocyte Esterase Trace Lalit/uL (Negative) 09/05/18 16:41 Urine WBC (Auto) 4 /hpf (0-5) 09/05/18 16:41 Urine RBC (Auto) 3 /hpf (0-3) 09/05/18 16:41 Ur Squamous Epith Cells < 1 /hpf (0-5) 09/05/18 16:41 Urine Bacteria Occ (<OCC) H 09/05/18 16:41 O2 Sat by Pulse Oximetry: 98 (RA) Pulse Ox Interpretation: Normal Medical Decision Making Medical Decision Making: Concern for Gastritis vs. Diverticulitis Plan: CT Abdomen and Pelvis EKG Chemistry Pepcid 20mg IVP NaCl IV Fluid Urine Culture Urinalysis 1914 ct scan with constipation and left inguinal hernia. will d/c pt with miralax and pmd f/u pt feeling better after pepcid, abdomen soft, nd. nt. Disposition Counseled Patient/Family Regarding: Studies Performed, Diagnosis, Need For Followup, Rx Given - Disposition Referrals: Radha Guillory MD [Medical Doctor] - Disposition: HOME/ ROUTINE Disposition Time: 19:18 Condition: GOOD Additional Instructions: Drink more fluids. Take MIralax once a day until you start to have softer stool. Eat high fiber foods. FOllow up with Dr Guillory in 1-2 days. Take Pepcid as prescribed. Recommend you follow up with gastroenterology. Return to ER for any worse symptoms. Prescriptions: Famotidine [Pepcid] 20 mg PO DAILY #14 tab Polyethylene Glycol 3350 [Miralax] 17 gm PO DAILY #1 bottle Instructions: Inguinal and Femoral (Groin) Hernias, High Fiber Diet, Constipation, Adult (DC) Forms: [employer] (Occitan), General Discharge Instructions - Clinical Impression Clinical Impression: Constipation, Inguinal hernia, left - PA / [employer] / Resident Statement MD/DO has reviewed & agrees with the documentation as recorded. - Scribe Statement The provider has reviewed the documentation as recorded by the Scribe (Jamel Shannon) All medical record entries made by the Scribe were at my direction and personally dictated by me. I have reviewed the chart and agree that the record accurately reflects my personal performance of the history, physical exam, medical decision making, and the department course for this patient. I have also personally directed, reviewed, and agree with the discharge instructions and disposition.
--- NOTE | 2018-09-05 19:06 | CT ---
PROCEDURE: CT Abdomen and Pelvis with oral and IV contrast. HISTORY: Abdominal pain COMPARISON: CT abdomen and pelvis without contrast performed 05/01/17 TECHNIQUE: Contiguous axial images of the abdomen and pelvis. Oral and IV contrast was administered. Coronal and Sagittal reformats generated and reviewed. Contrast dose: 100 mL Omnipaque 300 IV Radiation dose: Total exam DLP = 931.8 mGy-cm. This CT exam was performed using one or more of the following dose reduction techniques: Automated exposure control, adjustment of the mA and/or kV according to patient size, and/or use of iterative reconstruction technique. FINDINGS: LOWER THORAX: No visible consolidation, pleural effusion, or pneumothorax. Small hiatal hernia/distal esophageal wall thickening. LIVER: Hypoattenuation of the liver compatible with hepatic steatosis. Hepatomegaly. GALLBLADDER AND BILE DUCTS: Unremarkable. PANCREAS: Unremarkable. SPLEEN: Unremarkable. ADRENALS: Unremarkable. KIDNEYS AND URETERS: The kidneys enhance symmetrically. No hydronephrosis or obstructing renal calculus. BLADDER: The urinary bladder appears unremarkable. REPRODUCTIVE: Uterus is present. APPENDIX: The presumed appendix appears within normal limits of caliber. No secondary signs of acute appendicitis. BOWEL: The stomach is nondistended. The bowel loops appear within normal limits of caliber without evidence of intestinal obstruction. Nonspecific fecalization of small bowel loops in the right upper quadrant. Moderate constipation. PERITONEUM: No significant free fluid. No definite free air. LYMPH NODES: Sub cm mesenteric and right pelvic lymph nodes, nonspecific. VASCULATURE: No aortic aneurysm. Atherosclerotic calcifications/mural plaque present. BONES: Osseous demineralization. Degenerative changes. OTHER FINDINGS: Fat and vessels within the left inguinal hernia. IMPRESSION: Hypoattenuation of the liver compatible with hepatic steatosis. Hepatomegaly. Fat and vessels within the left inguinal hernia. Moderate constipation. Nonspecific fecalization of small bowel loops in the right upper quadrant. No evidence of bowel obstruction. Additional incidental findings as above.
[2018-09-05 19:47] VITALS: BP 177/90; PULSE 80; RESP 16; TEMP 98.1
[2018-09-07 05:29] VITALS: O2SAT 98
== END 2018-09-05 19:47 | disposition home or self-care (01) ==
LOC: C.ER 14:27
DX: K59.00 Constipation, unspecified (principal); K40.90 Unilateral inguinal hernia, without obstruction or gangrene, not specified as recurrent
CPT/HCPCS: 74177; 80053; 81001; 83690; 84484; 85025; 87086; 96374; 99285; J7030; Q9966; Q9967

== ENCOUNTER 2018-10-26 15:16 | Outpatient (CLI) | payer MEDICAID | END 2018-10-26 15:17 | disposition home or self-care (01) | LOC: C.MAMMO 15:16 | DX: Z12.31 Encounter for screening mammogram for malignant neoplasm of breast (principal) ==

== ENCOUNTER 2018-12-26 09:29 | Outpatient (CLI) | payer MEDICAID | END 2018-12-26 09:30 | disposition home or self-care (01) | LOC: C.MAMMO 09:29 ==